=== PATIENT | female | born 1965 | race Caucasian/White ===

== ENCOUNTER → 2020-08-28 08:55 | Outpatient (BNVA) | payer MEDICARE, SELFPAY | PROVIDERS: Family Provider Family Medicine; PCP Family Medicine; Visit Provider Nurse Practitioner Family | DX: M25.551 Pain in right hip (principal); M16.11 Unilateral primary osteoarthritis, right hip | CPT/HCPCS: 73502 ==

== ENCOUNTER 2023-11-15 21:42 | Emergency (ER) | payer MEDICARE, SELFPAY ==
--- NOTE | 2023-11-15 21:43 | ECG_ITS ---
[facility] [place] [facility] Date: 2023-11-15 Pat Name: Sammi Peña Department: Room: Gender: Female Clinical Documentation Improvement Specialist: : [id number] Requested By: Tyron Spears Order Number: [id number] Radha MD: Jaime Willard M.D. Measurements Intervals [place] Rate: 64 P: 34 TN: 166 QRS: 60 QRSD: 92 T: 56 QT: 408 QTc: 423 Interpretive Statements SINUS RHYTHM No previous ECG available for comparison Electronically Signed On 11-16-2023 21:36:49 CDT by Jaime Willard M.D. [id number]
--- NOTE | 2023-11-15 21:43 | XRR_ITS ---
PROCEDURE INFORMATION: Exam: XR Chest Exam date and time: 11/15/2023 9:49 PM Age: 58 years old Clinical indication: Chest wall pain; Prior surgery; Surgery date: 6+ months; Surgery type: Cervical; Additional info: Cxp TECHNIQUE: Imaging protocol: Radiologic exam of the chest. Views: 1 view. COMPARISON: No relevant prior studies available. FINDINGS: Lungs: Platelike atelectasis involves both lung bases but I see no lung mass or infiltrate. Pleural spaces: Unremarkable. No pleural effusion. No pneumothorax. Heart/Mediastinum: Unremarkable. No cardiomegaly. Bones/joints: Unremarkable. XR/XR chest 1V portable [id number] IMPRESSION: No acute findings.
[2023-11-15 21:48] VITALS: BP 176/102; PULSE 66; RESP 14; O2SAT 97
--- NOTE | 2023-11-15 21:54 | ED_ITS ---
HPI - Chest Pain 2 General: Chief Complaint: Chest Pain Stated Complaint: CP, Light headed Time Seen by Provider: 11/15/23 21:51 Source: patient Mode of arrival: ambulatory Limitations: no limitations History of Present Illness: 58-year-old female states she been havin g a burning pain across her chest that is been going on for 2 days. States pain is currently a 2 out of 10 had some worsening with inspiration. She denies any cough or fever no history of heart disease she is a non-smoker. She states she has been under a lot of stress lately as well. Associated symptoms: Deny abdominal pain, dyspnea, fever(s), nausea or vomiting Review of Systems 2 Const: Denies: fever(s), chills, body aches or change in appetite ENMT: Denies: throat pain or dental pain Card: Reports: chest pain Resp: Denies: dyspnea GI: Denies: abdominal pain, nausea, vomiting or diarrhea Musc: Denies: neck pain or back pain Skin/Breast: Denies: rash Neuro: Denies: headache(s) PFSH ED 2 PFSH: Surgical History H/O spinal fusion Family History Other CAD (coronary artery disease) Cancer Social History Smoking and tobacco/nicotine status: never used tobacco/nicotine Alcohol intake: never Substance/Drug Use: never Physical Exam 2 Const: COMMON NORMALS: no acute distress, patient oriented x3 and healthy appearing HENMT: COMMON NORMALS: normocephalic and atraumatic HEAD & SCALP: n ormocephalic and atraumatic Neck/C-Spine: COMMON NORMALS: full ROM and supple Chest: COMMONS NORMALS: normal inspection of the chest Resp: COMMON NORMALS: normal respiratory effort, No retractions, No use of accessory muscles and clear to auscultation bilaterally AUSCULTATION: clear to auscultation bilaterally Cardio: COMMON NORMALS: regular rate, regular rhythm and No murmurs present (Cardio) RATE: regular rate RHYTHM: regular rhythm GI: COMMON NORMALS: Normal to inspection, nondistended, normoactive bowel sounds present, Soft to palpation, non-tender and no masses PALPATION: Yes Soft to palpation Extremity: COMMON NORMALS: normal to inspection and full ROM Neuro: COMMON NORMALS: patient oriented x3, moves all extremities and no focal motor deficits Psych: COMMON NORMALS: mental status grossly normal, Normal thought process present and cooperative THOUGHT PROCESS: Normal thought process present Skin: COMMON NORMALS: no rashes or lesions noted and no wounds GENERAL SKIN EXAM: no rashes or lesions noted Course 2 Vital Signs: Vital signs: Vital Signs Pulse Rate 75 11/15/23 22:16 Respiratory Rate 16 11/15/23 22:16 Blood Pressure 143/90 11/15/23 22:16 Pulse Oximetry 98 11/15/23 22:16 Oxygen Delivery Me thod Room Air 11/15/23 22:16 MDM - Chest Pain Medical Decision Making Patient presents here with chest pain atypical in nature it has been on for 2 days her troponin here is negative D-dimer is negative as well she stable for discharge her blood pressure here is improved she is to monitor her blood pressure at home she is to follow-up with her PCP in 2 to 4 days return if worsening she understands agrees to plan. She has no signs of pulmonary embolism or aortic dissection Medical Records I reviewed the patient's medical records. Lab Data I reviewed the patient's lab results. 11/15/23 21:57 11/15/23 21:57 Radiology Impressions Chest X-Ray 11/15/23 21:43 IMPRESSION: No acute findings. Laboratory Results WBC 7.37 10^3/uL (3.29-11.43) 11/15/23 21:57 RBC 4.96 10^6/uL (3.85-5.65) 11/15/23 21:57 Hgb 14.40 g/dL (11.27-16.99) 11/15/23 21:57 Hct 43.6 % (36-47) 11/15/23 21:57 MCV 87.9 fl (85-98) 11/15/23 21:57 MCH 29.0 pg (27-33) 11/15/23 21:57 MCHC 33.0 g/dL (30-55) 11/15/23 21:57 RDW 13.2 % (12.1-15.1) 11/15/23 21:57 Plt Count 230 10^3/cmm (157-399) 11/15/23 21:57 MPV 11.4 fL (7.4-10.4) H 11/15/23 21:57 Neut % (Auto) 53.7 % 11/15/23 21:57 Lymph % (Auto) 30.8 % 11/15/23 21:57 [place] % (Auto) 12.9 % 11/15/23 21:57 Eos % (Auto) 1.8 % 11/15/23 21:57 Baso % (Auto) 0.4 % 11/15/23 21:57 Neut # (Auto) 3.96 10^3/uL (1.8-7.7) 11/15/23 21:57 Lymph # (Auto) 2.3 10^3/uL (0.8-4.8) 11/15/23 21:57 Donley # (Auto) 1.0 10^3/uL (0.2-0.9) H 11/15/23 21:57 Eos # (Auto) 0.1 10^3/uL (0.0-0.8) 11/15/23 21:57 Baso # (Auto) 0.0 10^3/uL (0.0-0.1) 11/15/23 21:57 Nucleated RBC % (auto) 0 % 11/15/23 21:57 Nucleated RBCs # 0.0 /100WBC 11/15/23 21:57 PT 13.40 SECONDS (12.1-14.9) 11/15/23 21:57 INR 0.99 (0.8-1.2) 11/15/23 21:57 D-Dimer 0.59 ug/mLFEU (0-0.59) 11/15/23 21:57 Carbon Dioxide 26 mmol/L (22-29) 11/15/23 21:57 BUN 13 mg/dL (6-20) 11/15/23 21:57 Creatinine 0.7 mg/dL (0.5-0.9) 11/15/23 21:57 GFR Calculation 86.6 mL/min (90-130) L 11/15/23 21:57 Glucose 82 mg/dL (65-115) 11/15/23 21:57 Calcium 8.9 mg/dL (8.5-10.5) 11/15/23 21:57 Total Bilirubin 0.2 mg/dL (0.15-1.2) 11/15/23 21:57 AST 12 U/L (0-32) 11/15/23 21:57 ALT 14 U/L (0-33) 11/15/23 21:57 Alkaline Phosphatase 69 U/L (35-105) 11/15/23 21:57 Troponin T Baseline < 6 ng/L (0-10) 11/15/23 21:57 NT-Pro-B Natriuret Pep 43 pg/mL (0-125) 11/15/23 21:57 Total Protein 6.8 g/dL (6.6-8.7) 11/15/23 21:57 Albumin 4.6 g/dL (3.5-5.2) 11/15/23 21:57 Globulin 2.2 g/dL (1.3-4.6) 11/15/23 21:57 Lipase 54 U/L (13-60) 11/15/23 21:57 All radiology interpretation(s) finalized by discharge EKG Data EKG 1: I personally reviewed and interpreted this EKG as follows: EKG interpretation date: 11/15/23 EKG interpretation time: 21:48 Interpretation: nsr hr [address] or t wave abnormalities qrs 92 qtc 418 Discharge Plan Discharge Patient Disposition: Home Clinical Impression: Chest pain Qualifiers: Chest pain type: unspecified Qualified Code(s): R07.9 - Chest pain, unspecified Condition: Stable Prescriptions: No Action duloxetine [Cymbalta] 30 mg capsule,delayed release(DR/EC) 30 mg PO BID methylprednisolone [Medrol (Rod)] 4 mg tablets,dose pack See Rx Instructions PO PER PKG DIR Qty: 21 0RF Rx Instructions: PO PER PKG DIR Discharge Orders: Discharge ED (Routine); Ordered 11/15/23 Ordered By: Rakan Brito Referrals: Wily Diaz MD [Primary Care Provider] - 4-7 days Discharge Diet: Advance as tolerated Discharge Activity: Resume usual activity Patient Instructions: Chest Pain (ED) Coding Level of Care Code ED Molding Plasterer for Chg Brandi
[2023-11-15 22:02] LABS: Basophils % 0.4 %; Eosinophils # 0.1 10^3/uL (0.0-0.8); Eosinophils % 1.8 %; Hematocrit 43.6 % (36-47); Lymphocytes # 2.3 10^3/uL (0.8-4.8); Lymphocytes % 30.8 %; Mean Corpuscular Volume 87.9 fl (85-98); Mean Platelet Volume 11.4 fL (7.4-10.4); Monocytes % 12.9 %; Neutrophils # 3.96 10^3/uL (1.8-7.7); Neutrophils % 53.7 %; Nucleated Red Blood Cells % 0 %; Platelet Count 230 10^3/cmm (157-399); Red Blood Count 4.96 10^6/uL (3.85-5.65); Red Cell Distribution Width 13.2 % (12.1-15.1); White Blood Count 7.37 10^3/uL (3.29-11.43)
[2023-11-15] MEDS: lidocaine 2% viscous 15 ML, aluminum-mag hydrox-simethicon 30 ML, sucralfate oral liq 1 GM PO (22:02)
[2023-11-15] MEDS: aspirin 81 mg Chew Tablet PO (22:04)
[2023-11-15 22:15] LABS: INR 0.99 (0.8-1.2)
[2023-11-15 22:16] VITALS: BP 143/90; PULSE 75; RESP 16; O2SAT 98
[2023-11-15 22:17] LABS: D Dimer 0.59 ug/mLFEU (0-0.59)
[2023-11-15 22:23] LABS: Troponin(5th) Baseline < 6 ng/L (0-10)
[2023-11-15 22:31] LABS: Alanine Aminotransferase 14 U/L (0-33); Albumin Level 4.6 g/dL (3.5-5.2); Alkaline Phosphatase 69 U/L (35-105); Aspartate Amino Transferase 12 U/L (0-32); Blood Urea Nitrogen 13 mg/dL (6-20); Calcium 8.9 mg/dL (8.5-10.5); Carbon Dioxide 26 mmol/L (22-29); Creatinine Clr Calc Pharmacy 93.4858; Globulin 2.2 g/dL (1.3-4.6); Glomerular Filtration Rate 86.6 mL/min (90-130); Glucose 82 mg/dL (65-115); Lipase 54 U/L (13-60); NT Pro B Type Natriuretic Pept 43 pg/mL (0-125); Total Bilirubin 0.2 mg/dL (0.15-1.2); Total Protein 6.8 g/dL (6.6-8.7)
[2023-11-15 22:42] LABS: Add Urine Microscopic? YES; Bilirubin Urine Neg (Negative); Blood Urine Neg (Negative); Glucose Urine UA Norm (Normal); Ketones Urine 1+ (Negative); Leukocyte Esterase Urine 1+ (Negative); Nitrate Urine Negative (Negative); Protein Urine Neg (Negative); Urine Appearance Clear (CLEAR); Urine Color Yellow (Yellow); Urobilinogen Urine Neg (Negative); WBC Urine 0-4 /hpf (0-5); pH Urine 5 (5-7)
[2023-11-15 22:43] LABS: Add Urine Culture? No; Bacteria Urine TRACE /hpf; Mucus Urine 1+ /hpf; Squamous Epithelial Cell Urine 0-4 /hpf (0-5)
[2023-11-15 22:59] VITALS: BP 143/90; PULSE 75; RESP 16; O2SAT 98
[2023-11-15 23:15] LABS: Anion Gap 14.9 (5-19); Chloride 105 mmol/L (98-107); Osmolality Calculated 293 mOsm/kg (285-295); Potassium 3.9 mmol/L (3.5-5.1); Sodium 142 mmol/L (136-145)
== END 2023-11-15 23:00 | disposition home or self-care (01) ==
PROVIDERS: Internal Medicine; Emergency Provider Emergency Medicine; PCP Radiology Neuroradiology
DX: R07.9 Chest pain, unspecified (principal)
CPT/HCPCS: 71045; 80053; 81001; 83690; 83880; 84484; 85025; 85378; 85610; 93005; 99285

== ENCOUNTER 2024-05-21 06:38 | Day surgery (SDC) | payer MEDICARE, SELFPAY ==
[2024-05-21] VITALS (16 sets, daily range): BP systolic 96–124; BP diastolic 57–93; PULSE 62–81; RESP 13–23; TEMP 36.1–36.9; O2SAT 95–100; BMI 23.5
[2024-05-21 07:10] LABS: Basophils % 0.3 %; Eosinophils % 0.2 %; Hematocrit 43.6 % (36-47); Lymphocytes # 1.1 10^3/uL (0.8-4.8); Lymphocytes % 9.6 %; Mean Corpuscular HGB Conc 33.3 g/dL (30-55); Mean Corpuscular Hemoglobin 29.6 pg (27-33); Mean Platelet Volume 12.7 fL (7.4-10.4); Monocytes % 8.6 %; Neutrophils # 9.62 10^3/uL (1.8-7.7); Neutrophils % 80.9 %; Nucleated Red Blood Cells % 0 %; Platelet Count 163 10^3/cmm (157-399); Red Cell Distribution Width 12.7 % (12.1-15.1); White Blood Count 11.88 10^3/uL (3.29-11.43)
--- NOTE | 2024-05-21 07:15 | CTR_ITS ---
PROCEDURE INFORMATION: Exam: CT Abdomen And Pelvis With Contrast Exam date and time: 05/21/2024 7:37 AM Age: 59 years old Clinical indication: Abdominal pain; Localized; Right lower quadrant (rlq); Prior surgery; Surgery date: 6+ months; Surgery type: Hysto; Additional info: Rlq abdominal and flank pain TECHNIQUE: Imaging protocol: Computed tomography of the abdomen and pelvis with contrast. Radiation optimization: All CT scans at this facility use at least one of these dose optimization techniques: automated exposure control; mA and/or kV adjustment per patient size (includes targeted exams where dose is matched to clinical indication); or iterative reconstruction. Contrast material: OMNI 350; Contrast volume: 100 ml; Contrast route: INTRAVENOUS (IV); COMPARISON: CR XR hip RT 2-3V wo/w pel* [id number] 08/28/2020 9:01 AM RADIATION DOSE METRICS: Total DLP (mGy-cm): 475.8 FINDINGS: Lungs: There is subpleural atelectasis of the dependent portions of the lungs. Liver: Unremarkable.No mass. Gallbladder and biliary ducts: Normal. No calcified stones. No ductal dilation. Pancreas: Normal. No ductal dilation. Spleen: The spleen is normal. Adrenal glands: The adrenal glands are normal. Kidneys and ureters: There is no evidence of hydronephrosis. There are multiple renal hypodensities that cannot be further characterized on the current examination. There is punctate nephrolithiasis versus renal vascular calcifications. Stomach and bowel: There is no evidence of intestinal perforation or obstruction. There is no evidence of colitis/diverticulitis. Moderate diverticulosis is present in the distal colon. Appendix: The appendix demonstrates moderate diffuse distention with periappendiceal fat stranding consistent with moderate acute appendicitis. Intraperitoneal space: No abscess. No free air. No significant fluid collection. Vasculature: Unremarkable.No abdominal aortic aneurysm. Lymph nodes: Unremarkable.No enlarged lymph nodes. Urinary bladder: The bladder is normal. Reproductive: There has been a hysterectomy. Bones/joints: Unremarkable. No acute fracture. Soft tissues: There is a fat-containing umbilical hernia. CT/CT abdomen pelvis w con* [id number] IMPRESSION: Acute appendicitis. No abscess or free air. COMMENTS: Consistent with the [employer]'s Incidental Findings Committee white paper (J Am Stanley Radiol 2018): Any incidental renal lesion less than 1 cm or classified as too small to characterize, or any incidental cystic renal lesion characterized as simple-appearing, is likely benign. No follow-up imaging is recommended for these lesions per consensus recommendations based on imaging criteria.
--- NOTE | 2024-05-21 07:15 | ED_ITS ---
HPI - Abdominal Pain 2 General: Chief Complaint: Abdominal Pain Stated Complaint: abdominal pain, nausea Time Seen by Provider: 05/21/24 06:59 History of Present Illness: 59-year-old female who presents emergenc y room with right lower abdominal and flank pain has been present for about 3 days. She has had some nausea and dry heaving. No fevers. No diarrhea. She has had a hysterectomy but no other abdominal surgeries. No known fevers. No chest pain. No shortness of breath. No altered mental status. No focal motor deficits. No dysuria. Related Data Home Medications Medication Instructions Recorded Confirmed duloxetine 30 mg capsule,delayed 30 mg PO BID 08/28/20 08/28/20 release (Cymbalta) Previous Rx's Medication Instructions Recorded methylprednisolone 4 mg tablets in See Rx Instructions PO PER PKG DIR 08/28/20 a dose pack (Medrol (Rod)) #21 ea Allergies Allergy/AdvReac Type Severity Reaction Status Date / Time Sulfa (Sulfonamide Allergy unknown Verified 11/15/23 21:50 Antibiotics) Review of Systems 2 Narrative: Constitutional symptoms: Negative except as documented in HPI. Skin symptoms: Negative except as documented in HPI. Eye symptoms: Negative except as documented in HPI. ENMT symptoms: Negative except as documented in HPI. Respiratory symptoms: Negative except as documented in HPI. Cardiovascular symptoms: Negative except as documented in HPI. Gastrointestinal symptoms: Negative except as documented in HPI. Genitourinary symptoms: Negative except as documented in HPI. Musculoskeletal symptoms: Negative except as documented in HPI. Neurologic symptoms: Negative except as documented in HPI. Psychiatric symptoms: Negative except as documented in HPI. Endocrine symptoms: Negative except as documented in HPI. PFSH ED 2 PFSH: Surgical History H/O spinal fusion Family History Other CAD (coronary artery disease) Cancer Social History Smoking and tobacco/nicotine status: never used tobacco/nicotine Alcohol intake: never Substance/Drug Use: never Physical Exam 2 Narrative: EXAM NARRATIVE: General: Alert, no acute distress. Skin: Warm, dry. Head: Normocephalic, atraumatic. Neck: Supple, trachea midline. Eye: Extraocular movements are intact. Ears, nose, mouth and throat: Dry oral mucosa Cardiovascular: Regular, Normal peripheral perfusion. Respiratory: Lungs are clear to auscultation, respirations are non-labored, breath sounds are equal, Symmetrical chest wall expansion. Gastrointestinal: Soft, right lower quadrant and right flank pain, Non distended Musculoskeletal: Normal ROM, no deformity. Neurological: Alert and oriented, No focal neurological deficit observed. Psychiatric: Cooperative, appropriate mood & affect. Course 2 Vital Signs: Vital signs: Vital Signs Temperature 97.6 F 05/21/24 06:42 Pulse Rate 68 05/21/24 09:13 Respiratory Rate 18 05/21/24 09:13 Blood Pressure 109/75 05/21/24 09:13 Pulse Oximetry 96 05/21/24 09:13 Oxygen Delivery Me thod Room Air 05/21/24 07:28 MDM - Abdominal Pain Medical Decision Making Medical decision making: Differential diagnosis for this patient with right lower quadrant abdominal pain including but not limited to and based on the above HPI, review of systems and physical exam: Ureterolithiasis. Urinary tract infection. Appendicitis. colitis. small bowel obstruction. Crohn's flare. Pancreatitis. Cholelithiasis or cholecystitis. Hepatitis. Diverticulitis. Constipation. ovarian cyst. ovarian torsion no renal failure. BUN and creatinine are 14 and 0.7. Workup: Orders were placed to evaluate differential diagnosis based on the above differential, HPI and exam: Lab Review: Laboratory results were reviewed and interpreted by myself the emergency room physician. Leukocytosis with white count 11.9. No anemia. Hemoglobin is 14.5. Platelets 163. Liver enzymes are normal. CRP is quite elevated at 56. Patient also has a bit of a urinary tract infection with white count of 11-20 in her urine and 2+ bacteria CT of the abdomen pelvis with contrast: Patient has an acute appendicitis. This was reviewed and interpreted by myself the emergency room physician. I also reviewed the radiology report. I also discussed the findings with the radiologist on-call personally. I reviewed the patient's medical record Reexamination: Patient still with some right lower quadrant pain after pain meds. She is receiving fluids. Blood pressure is a little soft. She appears dehydrated. Consultation: I spoke with Dr. Orellana who is admitting the patient. He will take her to the OR likely today. Ordered Zosyn as requested. Assessment and plan: Acute appendicitis Dehydration Urinary tract infection ?I had given Rocephin initially for a UTI, however the patient was ultimately found to have appendicitis and at that point Zosyn was given. ? 2 L normal saline bolus given with concern for sepsis. ? Dilaudid and Zofran were given. -I discussed the patient with the hospitalist on-call who is admitting the patient. - Discussed findings and plan with patient. Answered any questions. - All laboratory values were reviewed and interpreted personally by myself, the ER physician - All imaging was reviewed and interpreted personally by myself, the ER physician. - Evaluation and treatment of this problem were appropriate in the emergency setting Lab Data 05/21/24 06:47 05/21/24 06:47 Labs/Radiology: Radiology Impressions Abdomen/Pelvis CT 05/21/24 07:15 IMPRESSION: Acute appendicitis. No abscess or free air. COMMENTS: Consistent with the [employer]'s Incidental Findings Committee white paper (J Am Stanley Radiol 2018): Any incidental renal lesion less than 1 cm or classified as too small to characterize, or any incidental cystic renal lesion characterized as simple-appearing, is likely benign. No follow-up imaging is recommended for these lesions per consensus recommendations based on imaging criteria. ADDENDUM: 05/21/24 0932 THIS REPORT CONTAINS FINDINGS THAT MAY BE CRITICAL TO PATIENT CARE. The findings were verbally communicated via telephone conference with REUBEN BELL at 9:31 AM CDT on 05/21/2024. The findings were acknowledged and understood. Laboratory Results WBC 11.88 10^3/uL (3.29-11.43) H 05/21/24 06:47 RBC 4.90 10^6/uL (3.85-5.65) 05/21/24 06:47 Hgb 14.50 g/dL (11.27-16.99) 05/21/24 06:47 Hct 43.6 % (36-47) 05/21/24 06:47 MCV 89.0 fl (85-98) 05/21/24 06:47 MCH 29.6 pg (27-33) 05/21/24 06:47 MCHC 33.3 g/dL (30-55) 05/21/24 06:47 RDW 12.7 % (12.1-15.1) 05/21/24 06:47 Plt Count 163 10^3/cmm (157-399) 05/21/24 06:47 MPV 12.7 fL (7.4-10.4) H 05/21/24 06:47 Neut % (Auto) 80.9 % 05/21/24 06:47 Lymph % (Auto) 9.6 % 05/21/24 06:47 [place] % (Auto) 8.6 % 05/21/24 06:47 Eos % (Auto) 0.2 % 05/21/24 06:47 Baso % (Auto) 0.3 % 05/21/24 06:47 Neut # (Auto) 9.62 10^3/uL (1.8-7.7) H 05/21/24 06:47 Lymph # (Auto) 1.1 10^3/uL (0.8-4.8) 05/21/24 06:47 Johnson # (Auto) 1.0 10^3/uL (0.2-0.9) H 05/21/24 06:47 Eos # (Auto) 0.0 10^3/uL (0.0-0.8) 05/21/24 06:47 Baso # (Auto) 0.0 10^3/uL (0.0-0.1) 05/21/24 06:47 Nucleated RBC % (auto) 0 % 05/21/24 06:47 Nucleated RBCs # 0.0 /100WBC 05/21/24 06:47 Sodium 136 mmol/L (136-145) 05/21/24 06:47 Potassium 3.6 mmol/L (3.5-5.1) 05/21/24 06:47 Chloride 102 mmol/L (98-107) 05/21/24 06:47 Carbon Dioxide 22 mmol/L (22-29) 05/21/24 06:47 Anion Gap 15.6 (5-19) 05/21/24 06:47 BUN 14 mg/dL (6-20) 05/21/24 06:47 Creatinine 0.7 mg/dL (0.5-0.9) 05/21/24 06:47 GFR Calculation 86.2 mL/min (90-130) L 05/21/24 06:47 Glucose 125 mg/dL (65-115) H 05/21/24 06:47 Calculated Osmolality 284 mOsm/kg (285-295) L 05/21/24 06:47 Lactic Acid 0.7 mmol/L (0.5-2.2) 05/21/24 07:01 Calcium 8.8 mg/dL (8.5-10.5) 05/21/24 06:47 Total Bilirubin 0.9 mg/dL (0.15-1.2) 05/21/24 06:47 AST 13 U/L (0-32) 05/21/24 06:47 ALT 7 U/L (0-33) 05/21/24 06:47 Alkaline Phosphatase 72 U/L (35-105) 05/21/24 06:47 C-Reactive Protein 56.1 mg/L (0.0-4.9) H 05/21/24 06:47 Total Protein 6.9 g/dL (6.6-8.7) 05/21/24 06:47 Albumin 4.3 g/dL (3.5-5.2) 05/21/24 06:47 Globulin 2.6 g/dL (1.3-4.6) 05/21/24 06:47 Urine Color [place] (Yellow) A 05/21/24 07:17 Urine Appearance Clear (CLEAR) 05/21/24 07:17 Urine pH 6.0 (5-7) 05/21/24 07:17 Ur Specific [place] 1.023 (1.005-1.030) 05/21/24 07:17 Urine Protein Trace (Negative) A 05/21/24 07:17 Urine Glucose (UA) Negative (Normal) 05/21/24 07:17 Urine Ketones 3+ (Negative) H 05/21/24 07:17 Urine Blood Negative (Negative) 05/21/24 07:17 Urine Nitrate Negative (Negative) 05/21/24 07:17 Urine Bilirubin Negative (Negative) 05/21/24 07:17 Urine Urobilinogen 1.0 mg/dL (Negative) 05/21/24 07:17 Ur Leukocyte Esterase 2+ (Negative) A 05/21/24 07:17 Urine RBC 0-2 /hpf (0-2) 05/21/24 07:17 Urine WBC 11-20 /hpf (0-5) H 05/21/24 07:17 Ur Squamous Epith Cells 0-5 /hpf (0-5) 05/21/24 07:17 Amorphous Sediment Trace /hpf 05/21/24 07:17 Urine Bacteria 2+ /hpf (NONE) H 05/21/24 07:17 Hyaline Casts 13.63 /lpf 05/21/24 07:17 All radiology interpretation(s) finalized by discharge Discharge Plan Discharge Patient Disposition: Admitted As Inpatient Clinical Impression: Acute appendicitis Condition: Stable 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
[2024-05-21 07:19] LABS: C Reactive Protein 56.1 mg/L (0.0-4.9); Chloride 102 mmol/L (98-107); Potassium 3.6 mmol/L (3.5-5.1); Sodium 136 mmol/L (136-145)
[2024-05-21] MEDS: HYDROmorphone 1 mg/mL INJ 1 mL IVP (07:25)
[2024-05-21] MEDS: ondansetron 2 mg/ML SDV 2 mL 8 MG IVP (07:25)
[2024-05-21 07:32] LABS: Alanine Aminotransferase 7 U/L (0-33); Albumin Level 4.3 g/dL (3.5-5.2); Alkaline Phosphatase 72 U/L (35-105); Anion Gap 15.6 (5-19); Aspartate Amino Transferase 13 U/L (0-32); Blood Urea Nitrogen 14 mg/dL (6-20); Calcium 8.8 mg/dL (8.5-10.5); Carbon Dioxide 22 mmol/L (22-29); Creatinine Clr Calc Pharmacy 89.8331; Globulin 2.6 g/dL (1.3-4.6); Glomerular Filtration Rate 86.2 mL/min (90-130); Glucose 125 mg/dL (65-115); Osmolality Calculated 284 mOsm/kg (285-295); Total Bilirubin 0.9 mg/dL (0.15-1.2); Total Protein 6.9 g/dL (6.6-8.7)
[2024-05-21 07:40] LABS: Lactic Sepsis W/Reflex 0.7 mmol/L (0.5-2.2)
[2024-05-21 07:55] LABS: Bilirubin Urine Negative (Negative); Blood Urine Negative (Negative); Glucose Urine UA Negative (Normal); Ketones Urine 3+ (Negative); Leukocyte Esterase Urine 2+ (Negative); Nitrate Urine Negative (Negative); Protein Urine Trace (Negative); Specific Gravity, Urine 1.023 (1.005-1.030); Urine Appearance Clear (CLEAR)
[2024-05-21 08:00] LABS: Hyaline Casts Urine 13.63 /lpf; RBC Urine 0-2 /hpf (0-2); Squamous Epithelial Cell Urine 0-5 /hpf (0-5)
[2024-05-21 08:02] LABS: Urine Color Orange (Yellow)
[2024-05-21 08:04] LABS: Add Urine Culture? Yes
[2024-05-21 08:17] LABS: Amorphous Sediment Urine TRACE /hpf; Bacteria Urine 2+ /hpf
[2024-05-21] MEDS: sodium chloride 0.9% 1,000 ML 999 ML IV ×2 (08:45)
[2024-05-21] MEDS: cefTRIAXone 1,000 mg SDV 1000 MG IVP (08:46)
[2024-05-21] MEDS: piperacillin-tazobactam 4.5 GM in sodium chloride 0.9% (plus) 50 ML IV (09:48)
--- NOTE | 2024-05-21 09:51 | P.HP_ITS ---
Providers/Chief Complaint 2 Primary Care Provider: Wily Diaz MD Chief Complaint: abdominal pain, nausea History of Present Illness Sammi Peña is a 59 year old female with who was brought into the hospital for abdominal pain over the last 3 days, patient states that she has been having pain for last 3 days that have been worsening in intensity starting the periumbilical region migrating to right lower quadrant, some chills but no fever. No nausea or vomit. CT scan of the ED show evidence of acute appendicitis and she has a white count of 11.8 Review of Systems 2 General: Reports: 10 or more systems reviewed and unremarkable except in HPI and below Medications/Allergies Home Medications Medication Instructions Recorded Confirmed Last Taken Type duloxetine 30 mg capsule,delayed 30 mg PO BID 08/28/20 08/28/20 Unknown History release (Cymbalta) methylprednisolone 4 mg tablets in See Rx Instructions PO PER PKG DIR 08/28/20 Unknown Rx a dose pack (Medrol (Rod)) #21 ea Allergies Allergy/AdvReac Type Severity Reaction Status Date / Time Sulfa (Sulfonamide Allergy unknown Verified 11/15/23 21:50 Antibiotics) PFSH Acute 2 PFSH: Surgical History H/O spinal fusion Family History Other CAD (coronary artery disease) Cancer Social History Smoking and tobacco/nicotine status: never used tobacco/nicotine Alcohol intake: never Substance/Drug Use: never Vitals/I&O/Wt Last Vital Signs Temp 97.6 F 05/21/24 06:42 Pulse 68 05/21/24 09:13 Resp 18 05/21/24 09:13 BP 109/75 05/21/24 09:13 Pulse Ox 96 05/21/24 09:13 O2 Del Method Room Air 05/21/24 07:28 05/20/24 05/21/24 05/21/24 22:59 06:59 14:59 Intake Total 1999 Balance 1999 Weight last 48 hrs Weight 150 lb Physical Exam 2 Narrative: General : Patient is well developed , no acute distress, oriented x3 Head : Normal cephalic, a-traumatic. Nose : Mucous membranes are without erythema. Lungs : Equal chest rise bilaterally, no use of accessory muscles, trachea is midline. CV : Rate and rhythm are normal. Abdomen : Soft, tenderness in the right lower quadrant, McBurney and Rovsing positive Extremities : No edema. Upper extremities are normal bilaterally. Back : non-tender to palpation, no CVA tenderness. Data 05/21/24 06:47 05/21/24 06:47 A&P Assessment and plan (1) Acute appendicitis: Plan This a 59-year-old female who presents with acute appendicitis verified by imaging. I discussed all recent benefits of laparoscopic possible open appendectomy including the risks of bleeding, infection, injury to surrounding structures including the small bowel colon or ureter, risk of abscess formation, risk of need additional surgical interventions, risk of hernia. After discussion of all risk and benefits patient agrees to proceed. Attestations 2 Medical Necessity Statement*: Possible discharge after surgery Coding Level of Care Code Acute Code for [facility] Diagnoses Acute appendicitis K35.80
--- NOTE | 2024-05-21 10:39 | ANES.PREANE2 ---
Pre-Anesthetic Assessment Height/Weight: Height 1.7 m Weight 68.039 kg Temp Pulse Resp BP Pulse Ox O2 Del Method 98.4 F 79 20 H 124/79 98 Room Air 05/21/24 09:55 05/21/24 09:55 05/21/24 09:55 05/21/24 09:55 05/21/24 09:55 05/21/24 09:55 Operation Date: 05/21/24 11:10 Proposed Procedures p Laparoscopic Appendectomy(Not Applicable) - Wily Sandoval MD Familial anesthetic complications: None Was Beta Yasemin taken within 24 hours: N/A Was Clonidine taken within 24 hours: N/A Last intake: > 8 hrs Semaglutide 6 days ago Social No alcohol and No tobacco Exam alert, oriented x 3, clear to auscultation bilaterally and regular rate & rhythm Airway Mallampati: Class I Dentition: chipped (molars, requires oral surgery) and other (bridge) Pulmonary Asthma Anesthetic Plan ASA status: 2 Anesthesia: General Risk of > 500 ml blood loss (7ml/kg in children): No Medications/Allergies Home Medications Medication Instructions Recorded Confirmed Last Taken Type duloxetine 30 mg capsule,delayed 30 mg PO BID 08/28/20 08/28/20 Unknown History release (Cymbalta) methylprednisolone 4 mg tablets in See Rx Instructions PO PER PKG DIR 08/28/20 Unknown Rx a dose pack (Medrol (Rod)) #21 ea Allergies Allergy/AdvReac Type Severity Reaction Status Date / Time Sulfa (Sulfonamide Allergy unknown Verified 11/15/23 21:50 Antibiotics) [facility], LAT[facility] Anesthesia Surgical History H/O spinal fusion Family History Other CAD (coronary artery disease) Cancer Social History Smoking and tobacco/nicotine status: never used tobacco/nicotine Alcohol intake: never Substance/Drug Use: never Data Anesthesia 05/21/24 06:47 05/21/24 06:47 Short CBC 05/21/24 Range/Units 06:47 WBC 11.88 H (3.29-11.43) 10^3/uL Hgb 14.50 (11.27-16.99) g/dL Hct 43.6 (36-47) % MCV 89.0 (85-98) fl Plt Count 163 (157-399) 10^3/cmm Neut % (Auto) 80.9 % Neut # (Auto) 9.62 H (1.8-7.7) 10^3/uL BMP 05/21/24 06:47 Sodium 136 Potassium 3.6 Chloride 102 Carbon Dioxide 22 BUN 14 Creatinine 0.7 Glucose 125 H Calcium 8.8 Liver Function 05/21/24 Range/Units 06:47 Total Bilirubin 0.9 (0.15-1.2) mg/dL AST 13 (0-32) U/L ALT 7 (0-33) U/L Alkaline Phosphatase 72 (35-105) U/L Albumin 4.3 (3.5-5.2) g/dL Urine 05/21/24 Range/Units 07:17 Urine Color [place] A (Yellow) Urine Appearance Clear (CLEAR) Urine pH 6.0 (5-7) Ur Specific [place] 1.023 (1.005-1.030) Urine Protein Trace A (Negative) Urine Glucose (UA) Negative (Normal) Urine Ketones 3+ H (Negative) Urine Nitrate Negative (Negative) Urine Bilirubin Negative (Negative) Ur Leukocyte Esterase 2+ A (Negative) Urine RBC 0-2 (0-2) /hpf Urine WBC 11-20 H (0-5) /hpf Coags 05/21/24 06:47 C-Reactive Protein 56.1 H Cardiac Studies: No Data to Display
[2024-05-21] MEDS: BUPivacaine 0.25% INJ 30 mL INJECTION (11:12)
[2024-05-21] MEDS: lidocaine-epi 1% PF 1:200,000 30 mL SDV INJECTION (11:12)
--- NOTE | 2024-05-21 11:53 | PM.OP ---
Operative Report Date of procedure: May 21, 2024 Pre-op diagnosis: Acute appendicitis Post-op diagnosis: Acute appendicitis Post-op findings: there was a distended and inflamed appendix located in the right paracolic gutter, no overt perforation but there was supervision from the tip of the appendix. There was a local inflammatory reaction in the right lower quadrant from the inflamed appendix. There were some omental adhesions to the lower pelvis that were taken down. Procedure done: Laparoscopic appendectomy Specimens removed/disposition: Appendix Surgeon: Wily Sandoval MD Biology Adjunct Instructor: ALEXANDER OR STaff Estimated blood loss: 5 Complications: none Brief History: 59-year-old female with acute appendicitis verified by imaging after discussion of all risk and benefits we decided to proceed with laparoscopic possible open appendectomy. Procedure: Patient was brought into the OR, she was placed in a supine position. General anesthesia was given. The abdomen was prepped and draped in the usual sterile fashion. Timeout was conducted. The abdomen was accessed via 5 mm Optiview trocar at Wellington's point, initial pneumoperitoneum was achieved and no evidence of visceral injury during entry was noted. A 12 mm trocar was placed in the infraumbilical position under direct visualization and a 5 mm trocar was placed in the suprapubic position under direct visualization. Omentum was tethered down to the pelvis, in order to retract her cephalad to the small additions of the omentum to the pelvic wall were taken down bluntly. I then was able to identify the base of the appendix in the right lower quadrant the base the patient is healthy and following the base hide noted the appendix call up on the right paracolic gutter, there was local inflammatory reaction with an initial phlegmon formation between the appendix and ascending colon. I was able to bluntly dissect the appendix and liberated from this phlegmonous formation. The tip of the appendix was noticed to have a small amount of separation but no overt perforation noted. I was able to take down the mesoappendix with LigaSure all the way to the base, the base appeared healthy and I therefore transected the appendix with a 45 mm blue load Endo HOLLY stapler at this level. The appendix was retrieved in an Endo Catch bag to be at umbilical trocar site. The staple line appeared healthy and hemostatic. Due to local inflammatory reaction and a small amount of separation I decided to proceed with irrigation of the appendiceal bed periappendiceal area, I irrigated the area with about a liter of saline and aspirated all the fluid out. Final laparoscopy showed no evidence of additional pathology in the abdomen. The medical trocar site was closed using #0 Vicryl in a Juvenal-Bj suture passer under direct visualization. Suprapubic trocar was removed under direct visualization and the left upper quadrant trocar was used to evacuate the pneumoperitoneum and subsequently removed. The wounds were closed in layers using #3-0 Vicryl for subcutaneous tissue #4 Monocryl for the skin. Dermabond was applied. at the end of the procedure all counts were correct, the patient tolerated well the procedure was transferred to the PACU in stable condition.
--- NOTE | 2024-05-21 11:58 | P.DS_ITS ---
Discharge Providers Date of Discharge: May 21, 2024 Attending Provider at Discharge: Wily Sandoval MD Primary Care Provider: Wily Diaz MD Diagnoses at Discharge Discharge Diagnosis (1) Acute appendicitis: Details from hospital stay: 59-year-old female who presented to the hospital with acute appendicitis, laparoscopic appendectomy was done without complication, patient will be discharged home and will follow-up in 2 weeks in the clinic. Status: Acute Reason for Visit Reason for Visit: abdominal pain, nausea Physical Exam GI: OTHER: Abdomen soft, appropriately tender, surgical incisions covered with Dermabond. Discharge Data Studies Completed and Pending Completed Studies During Hospitalization Category Date Time Status CT abdomen pelvis w con* [id number] Stat Cat Scan 05/21/24 07:15 Completed Pending at discharge Category Date Time Status Urine Culture Stat Lab 05/21/24 07:17 Received Pathology: Surgical [PTH] Routine Pth 05/21/24 11:38 Ordered Radiology Impressions Abdomen/Pelvis CT 05/21/24 07:15 IMPRESSION: Acute appendicitis. No abscess or free air. COMMENTS: Consistent with the [employer]'s Incidental Findings Committee white paper (J Am Stanley Radiol 2018): Any incidental renal lesion less than 1 cm or classified as too small to characterize, or any incidental cystic renal lesion characterized as simple-appearing, is likely benign. No follow-up imaging is recommended for these lesions per consensus recommendations based on imaging criteria. ADDENDUM: 05/21/24 0932 THIS REPORT CONTAINS FINDINGS THAT MAY BE CRITICAL TO PATIENT CARE. The findings were verbally communicated via telephone conference with REUBEN BELL at 9:31 AM CDT on 05/21/2024. The findings were acknowledged and understood. Laboratory Results WBC 11.88 10^3/uL (3.29-11.43) H 05/21/24 06:47 RBC 4.90 10^6/uL (3.85-5.65) 05/21/24 06:47 Hgb 14.50 g/dL (11.27-16.99) 05/21/24 06:47 Hct 43.6 % (36-47) 05/21/24 06:47 MCV 89.0 fl (85-98) 05/21/24 06:47 MCH 29.6 pg (27-33) 05/21/24 06:47 MCHC 33.3 g/dL (30-55) 05/21/24 06:47 RDW 12.7 % (12.1-15.1) 05/21/24 06:47 Plt Count 163 10^3/cmm (157-399) 05/21/24 06:47 MPV 12.7 fL (7.4-10.4) H 05/21/24 06:47 Neut % (Auto) 80.9 % 05/21/24 06:47 Lymph % (Auto) 9.6 % 05/21/24 06:47 [place] % (Auto) 8.6 % 05/21/24 06:47 Eos % (Auto) 0.2 % 05/21/24 06:47 Baso % (Auto) 0.3 % 05/21/24 06:47 Neut # (Auto) 9.62 10^3/uL (1.8-7.7) H 05/21/24 06:47 Lymph # (Auto) 1.1 10^3/uL (0.8-4.8) 05/21/24 06:47 [place] # (Auto) 1.0 10^3/uL (0.2-0.9) H 05/21/24 06:47 Eos # (Auto) 0.0 10^3/uL (0.0-0.8) 05/21/24 06:47 Baso # (Auto) 0.0 10^3/uL (0.0-0.1) 05/21/24 06:47 Nucleated RBC % (auto) 0 % 05/21/24 06:47 Nucleated RBCs # 0.0 /100WBC 05/21/24 06:47 Sodium 136 mmol/L (136-145) 05/21/24 06:47 Potassium 3.6 mmol/L (3.5-5.1) 05/21/24 06:47 Chloride 102 mmol/L (98-107) 05/21/24 06:47 Carbon Dioxide 22 mmol/L (22-29) 05/21/24 06:47 Anion Gap 15.6 (5-19) 05/21/24 06:47 BUN 14 mg/dL (6-20) 05/21/24 06:47 Creatinine 0.7 mg/dL (0.5-0.9) 05/21/24 06:47 GFR Calculation 86.2 mL/min (90-130) L 05/21/24 06:47 Glucose 125 mg/dL (65-115) H 05/21/24 06:47 Calculated Osmolality 284 mOsm/kg (285-295) L 05/21/24 06:47 Lactic Acid 0.7 mmol/L (0.5-2.2) 05/21/24 07:01 Calcium 8.8 mg/dL (8.5-10.5) 05/21/24 06:47 Total Bilirubin 0.9 mg/dL (0.15-1.2) 05/21/24 06:47 AST 13 U/L (0-32) 05/21/24 06:47 ALT 7 U/L (0-33) 05/21/24 06:47 Alkaline Phosphatase 72 U/L (35-105) 05/21/24 06:47 C-Reactive Protein 56.1 mg/L (0.0-4.9) H 05/21/24 06:47 Total Protein 6.9 g/dL (6.6-8.7) 05/21/24 06:47 Albumin 4.3 g/dL (3.5-5.2) 05/21/24 06:47 Globulin 2.6 g/dL (1.3-4.6) 05/21/24 06:47 Urine Color [place] (Yellow) A 05/21/24 07:17 Urine Appearance Clear (CLEAR) 05/21/24 07:17 Urine pH 6.0 (5-7) 05/21/24 07:17 Ur Specific [place] 1.023 (1.005-1.030) 05/21/24 07:17 Urine Protein Trace (Negative) A 05/21/24 07:17 Urine Glucose (UA) Negative (Normal) 05/21/24 07:17 Urine Ketones 3+ (Negative) H 05/21/24 07:17 Urine Blood Negative (Negative) 05/21/24 07:17 Urine Nitrate Negative (Negative) 05/21/24 07:17 Urine Bilirubin Negative (Negative) 05/21/24 07:17 Urine Urobilinogen 1.0 mg/dL (Negative) 05/21/24 07:17 Ur Leukocyte Esterase 2+ (Negative) A 05/21/24 07:17 Urine RBC 0-2 /hpf (0-2) 05/21/24 07:17 Urine WBC 11-20 /hpf (0-5) H 05/21/24 07:17 Ur Squamous Epith Cells 0-5 /hpf (0-5) 05/21/24 07:17 Amorphous Sediment Trace /hpf 05/21/24 07:17 Urine Bacteria 2+ /hpf (NONE) H 05/21/24 07:17 Hyaline Casts 13.63 /lpf 05/21/24 07:17 Vitals Last Vital Signs Temp 98.4 F 05/21/24 09:55 Pulse 79 05/21/24 09:55 Resp 20 H 05/21/24 09:55 BP 124/79 05/21/24 09:55 Pulse Ox 98 05/21/24 09:55 O2 Del Method Room Air 05/21/24 09:55 Discharge Plan Discharge Patient Disposition: Home Condition: Stable Prescriptions: No Action duloxetine [Cymbalta] 30 mg capsule,delayed release(DR/EC) 30 mg PO BID methylprednisolone [Medrol (Rod)] 4 mg tablets,dose pack See Rx Instructions PO PER PKG DIR Qty: 21 0RF Rx Instructions: PO PER PKG DIR Referrals: Wily Diaz MD [Primary Care Provider] - Discharge Diet: Advance as tolerated Discharge Activity: Limit activity as instructed Patient Instructions: Opioid Safety, Pain Management Activity Restrictions/Additional Instructions: No heavy lifting during the next 6 weeks, no more than 15 pounds. Walk is much as possible this will speed up the recovery. You can shower starting the day after tomorrow. Let soap and water run over your wounds and then pat dry. Return to the hospital you have fever severe abdominal pain that is getting worse or purulence from your wounds. Please take your medication as prescribed, even if you are feeling fine you need to finish the antibiotics. If you take oxycodone please take the MiraLAX otherwise he will get constipated. Discharge Attestations Time Spent in Discharge Care*: less than 30 min Quality Metrics Clinical Quality Measures [ No reported AMI, CVA or VTE this stay] Coding Level of Care Code Acute Code for [facility] Diagnoses Acute appendicitis K35.80
== END 2024-05-21 12:58 | disposition home or self-care (01) ==
LOC: ER 09:37 → OR 09:42
PROVIDERS: Emergency Provider Emergency Medicine; PCP Radiology Neuroradiology; Visit Provider Surgery
PROC: 0DTJ4ZZ Resection of Appendix, Percutaneous Endoscopic Approach (ICD-10-PCS; CPT 44970; principal; 2024-05-21 11:00)
DX: K35.33 Acute appendicitis with perforation, localized peritonitis, and gangrene, with abscess (principal); J44.9 Chronic obstructive pulmonary disease, unspecified; Z98.1 Arthrodesis status; N39.0 Urinary tract infection, site not specified
CPT/HCPCS: 74177; 80053; 81001; 83605; 85025; 86140; 87086; 88304; J0696; J1100; J1170; J1885; J2250; J2405; J2543; J2704; J2710; J3010; J3490; J7030; Q9967

== ENCOUNTER 2024-05-26 09:22 | Emergency (ER) | payer MEDICARE, SELFPAY ==
[2024-05-26 09:36] VITALS: BP 129/96; PULSE 74; RESP 14; TEMP 36.6; O2SAT 97; BMI 25.0
--- NOTE | 2024-05-26 09:46 | ED_ITS ---
HPI - Back Pain/Injury 2 General: Chief Complaint: Back Pain/Injury Stated Complaint: pain in lower back and legs, nausea Time Seen by Provider: 05/26/24 09:22 Source: patient Mode of arrival: ambulatory Limitations: no limitations History of Present Illness: Patient is a nice 59-year-old female presents to ED today with a complaint of back pain. She states she underwent an appendectomy approximately [address] Sandoval (DOS 05/21). She states approximately 3 days later she began developing lower back pain. She feels like back pain radiates down into her bilateral lower extremities. She does still complain of some abdominal pain. She feels nauseous. She was reportedly told she had a UTI in the hospital and started on antibiotics for this. Her urine culture was reviewed on today's visit and just showing mixed urogenital jasmin. Patient is not having any flank pain. Patient states she has had some mild discomforts in her back previously but nothing that has felt like today. She is not having any saddle anesthesia or bowel/bladder incontinence/retention. MD elicited complaint: back pain Onset (ago): day(s) Timing: constant Severity: severe Pain scale (0-10): 10 Similar Symptoms Previously: No Location: lumbar spine Radiation: buttocks, left upper leg and right upper leg Exacerbating factors: movement, sitting upright and walking Relieving factors: none Context: other (recent surgery) Associated symptoms: Reports abdominal pain and nausea; Deny chills, change in bowel habits, dysuria, fatigue, fever(s) or vomiting Work related injury: No Related Data Home Medications Medication Instructions Recorded Confirmed duloxetine 30 mg capsule,delayed 30 mg PO BID 08/28/20 05/26/24 release (Cymbalta) oxycodone 5 mg tablet 5 mg PO Q8H PRN Pain 05/26/24 05/26/24 Previous Rx's Medication Instructions Recorded amoxicillin 875 mg-potassium 1 tab PO BID 7 days #14 tabs 05/21/24 clavulanate 125 mg tablet meloxicam 7.5 mg tablet 7.5 mg PO DAILY 7 days #7 tabs 05/21/24 polyethylene glycol 3350 17 gram 17 g PO DAILY 7 days #7 ea 05/21/24 oral powder packet (Miralax) methocarbamol 500 mg tablet 1,000 mg (2 x 500 mg) PO Q8H #30 05/26/24 tabs methylprednisolone 4 mg tablets in See Rx Instructions PO .COMPLEX 05/26/24 a dose pack (Medrol (Rod)) #21 ea ondansetron 4 mg disintegrating 4 mg PO Q8H PRN nausea and 05/26/24 tablet vomiting #14 tabs Allergies Allergy/AdvReac Type Severity Reaction Status Date / Time Sulfa (Sulfonamide Allergy unknown Verified 05/26/24 09:46 Antibiotics) Review of Systems 2 Const: Denies: fever(s), chills, body aches, fatigue or malaise Card: Denies: chest pain Resp: Denies: dyspnea GI: Reports: abdominal pain and nausea; Denies: vomiting, diarrhea or change in bowel habits : Reports: urinary frequency; Denies: flank pain, difficulty voiding, dysuria, urinary hesitancy, dribbling or pelvic pain Musc: Reports: back pain; Denies: neck pain, extremity pain, extremity swelling, joint pain or joint swelling Skin/Breast: Denies: rash Neuro: Denies: headache(s), numbness in extremities, weakness in extremities, sensory changes or dizziness PFSH ED 2 PFSH: Surgical History H/O spinal fusion Family History Other CAD (coronary artery disease) Cancer Social History Smoking and tobacco/nicotine status: never used tobacco/nicotine Alcohol intake: never Substance/Drug Use: never Physical Exam 2 Const: COMMON NORMALS: average body habitus, patient oriented x3, no limitations, healthy appearing, alert and well nourished GENERAL APPEARANCE: cooperative and in distress (appears uncomfortable secondary to pain) O RIENTATION/CONSCIOUSNESS: Yes awake, Yes oriented to person, Yes oriented to place and Yes oriented to time Eye: COMMON NORMALS: no scleral icterus Neck/C-Spine: COMMON NORMALS: full ROM GENERAL: Yes normal visual inspection CERVICAL SPINE: No Cervical spine tenderness Chest: COMMONS NORMALS: normal inspection of the chest and normal palpation of entire chest wall Resp: COMMON NORMALS: normal respiratory effort and clear to auscultation bilaterally AUSCULTATION: clear to auscultation bilaterally Cardio: COMMON NORMALS: regular rate and regular rhythm RATE: regular rate RHYTHM: regular rhythm GI: INSPECTION: Yes other (surgical incisions appear well healing) A USCULTATION: Yes normoactive bowel sounds PALPATION: Yes Tenderness to palpation present (GI) (diffusely-max tenderness to RLQ), No Guarding due to palpation present (GI) and No Rigid due to palpation : COMMON NORMALS: Yes no CVA tenderness BLADDER/KIDNEY EXAM: Yes no CVA tenderness Back/Pelvis: COMMON NORMALS: no CVA tenderness THORACIC SPINE/UPPER BACK: N o thoracic spinal tenderness LUMBAR SPINE/LOWER BACK: Yes lumbar spinal tenderness, Yes paraspinal muscle tenderness, No paraspinal muscle spasm and No mass present PELVIS: Yes buttocks normal and No sciatic notch tenderness S ACROILIAC JOINTS: Yes SI joints normal SACRUM: no tenderness COCCYX: no tenderness Extremity: COMMON NORMALS: normal to inspection, full ROM, capillary refill normal, no joint enlargement, no clubbing, cyanosis or edema, no calf tenderness and no pedal edema GENERAL: Yes normal exam except as noted Neuro: COMMON NORMALS: patient oriented x3, moves all extremities, no focal motor deficits and no sensory deficits noted SENSORIUM/ORIENTATION: Yes alert, Yes oriented to person, Yes oriented to place and Yes oriented to time Skin: COMMON NORMALS: no rashes or lesions noted GENERAL SKIN EXAM: no rashes or lesions noted Course 2 Vital Signs: Vital signs: Vital Signs Temperature 97.8 F 05/26/24 09:36 Pulse Rate 74 05/26/24 09:36 Respiratory Rate 14 05/26/24 09:36 Blood Pressure 129/96 05/26/24 10:17 Pulse Oximetry 98 05/26/24 10:17 Oxygen Delivery Me thod Room Air 05/26/24 10:17 MDM - Back Pain/Injury Medical Decision Making Patient has no acute neurologic symptoms. Vital signs are stable. Blood work is unremarkable. Her UA overall appearing benign. Urine culture performed in the hospital was unremarkable. No evidence of postsurgical complication on CT scan. Constipation/postoperative mild ileus. Spoke to Dr. Dunham directly regarding her back who stated there were no significant findings on CT scan. 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 She ambulated here without assistance. Will allow discharge from ED with recommendations for PCP follow up. Return precautions given. Differential Diagnosis Likely lumbar radiculopathy, sciatica and strain of lumbar region Medical Records I reviewed the patient's medical records. Labs I reviewed the patient's lab results. 05/26/24 10:20 05/26/24 10:20 Radiology Impressions Abdomen/Pelvis CT 05/26/24 09:46 IMPRESSION: 1. Recent postoperative changes appendectomy. No evidence of abscess or drainable fluid collection. 2. Slight fluid dilatation of distal small bowel loops with some fecalization likely due to postoperative mild adynamic ileus. 3. Mild pancolonic constipation. 4. Sigmoid diverticulosis. 5. Prior hysterectomy. 6. Subsegmental atelectasis in the lung bases. Laboratory Results WBC 5.70 10^3/uL (3.29-11.43) 05/26/24 10:20 RBC 5.20 10^6/uL (3.85-5.65) 05/26/24 10:20 Hgb 15.20 g/dL (11.27-16.99) 05/26/24 10:20 Hct 44.9 % (36-47) 05/26/24 10:20 MCV 86.3 fl (85-98) 05/26/24 10:20 MCH 29.2 pg (27-33) 05/26/24 10:20 MCHC 33.9 g/dL (30-55) 05/26/24 10:20 RDW 12.5 % (12.1-15.1) 05/26/24 10:20 Plt Count 259 10^3/cmm (157-399) 05/26/24 10:20 MPV 12.0 fL (7.4-10.4) H 05/26/24 10:20 Neut % (Auto) 48.5 % 05/26/24 10:20 Lymph % (Auto) 34.6 % 05/26/24 10:20 [place] % (Auto) 13.7 % 05/26/24 10:20 Eos % (Auto) 2.3 % 05/26/24 10:20 Baso % (Auto) 0.5 % 05/26/24 10:20 Neut # (Auto) 2.77 10^3/uL (1.8-7.7) 05/26/24 10:20 Lymph # (Auto) 2.0 10^3/uL (0.8-4.8) 05/26/24 10:20 [place] # (Auto) 0.8 10^3/uL (0.2-0.9) 05/26/24 10:20 Eos # (Auto) 0.1 10^3/uL (0.0-0.8) 05/26/24 10:20 Baso # (Auto) 0.0 10^3/uL (0.0-0.1) 05/26/24 10:20 Nucleated RBC % (auto) 0 % 05/26/24 10:20 Nucleated RBCs # 0.0 /100WBC 05/26/24 10:20 Sodium 137 mmol/L (136-145) 05/26/24 10:20 Potassium 4.1 mmol/L (3.5-5.1) 05/26/24 10:20 Chloride 102 mmol/L (98-107) 05/26/24 10:20 Carbon Dioxide 24 mmol/L (22-29) 05/26/24 10:20 Anion Gap 15.1 (5-19) 05/26/24 10:20 BUN 14 mg/dL (6-20) 05/26/24 10:20 Creatinine 0.6 mg/dL (0.5-0.9) 05/26/24 10:20 GFR Calculation 103.0 mL/min (90-130) 05/26/24 10:20 Glucose 92 mg/dL (65-115) 05/26/24 10:20 Calculated Osmolality 284 mOsm/kg (285-295) L 05/26/24 10:20 Calcium 9.0 mg/dL (8.5-10.5) 05/26/24 10:20 Total Bilirubin 0.5 mg/dL (0.15-1.2) 05/26/24 10:20 AST 22 U/L (0-32) 05/26/24 10:20 ALT 19 U/L (0-33) 05/26/24 10:20 Alkaline Phosphatase 73 U/L (35-105) 05/26/24 10:20 Total Protein 7.4 g/dL (6.6-8.7) 05/26/24 10:20 Albumin 4.3 g/dL (3.5-5.2) 05/26/24 10:20 Globulin 3.1 g/dL (1.3-4.6) 05/26/24 10:20 Urine Color [place] (Yellow) A 05/26/24 09:54 Urine Appearance Clear (CLEAR) 05/26/24 09:54 Urine pH 6.0 (5-7) 05/26/24 09:54 Ur Specific [place] 1.012 (1.005-1.030) 05/26/24 09:54 Urine Protein Negative (Negative) 05/26/24 09:54 Urine Glucose (UA) Negative (Normal) 05/26/24 09:54 Urine Ketones 1+ (Negative) H 05/26/24 09:54 Urine Blood Negative (Negative) 05/26/24 09:54 Urine Nitrate Negative (Negative) 05/26/24 09:54 Urine Bilirubin Negative (Negative) 05/26/24 09:54 Urine Urobilinogen 1.0 mg/dL (Negative) 05/26/24 09:54 Ur Leukocyte Esterase Trace (Negative) A 05/26/24 09:54 Urine RBC 0-2 /hpf (0-2) 05/26/24 09:54 Urine WBC 0-5 /hpf (0-5) 05/26/24 09:54 Ur Squamous Epith Cells 0-5 /hpf (0-5) 05/26/24 09:54 Urine Bacteria None seen /hpf (NONE) 05/26/24 09:54 Hyaline Casts 0.40 /lpf 05/26/24 09:54 All radiology interpretation(s) finalized by discharge Discharge Plan Discharge Patient Disposition: Home Clinical Impression: Low back pain Qualifiers: Chronicity: acute Back pain laterality: midline Sciatica presence: unspecified whether sciatica present Qualified Code(s): M54.50 - Low back pain, unspecified Condition: Stable Prescriptions: New methocarbamol 500 mg tablet 1,000 mg PO Q8H Qty: 30 0RF methylprednisolone [Medrol (Rod)] 4 mg tablets,dose pack See Rx Instructions .ROUTE .COMPLEX Qty: 21 0RF Rx Instructions: orally per package directions ondansetron 4 mg tablet,disintegrating 4 mg PO Q8H PRN (Reason: nausea and vomiting) Qty: 14 0RF No Action duloxetine [Cymbalta] 30 mg capsule,delayed release(DR/EC) 30 mg PO BID oxycodone 5 mg tablet 5 mg PO Q8H PRN (Reason: Pain) meloxicam 7.5 mg tablet 7.5 mg PO DAILY 7 Days Qty: 7 0RF amoxicillin-pot clavulanate 875-125 mg tablet 1 tab PO BID 7 Days Qty: 14 0RF polyethylene glycol 3350 [Miralax] 17 gram powder in packet 17 g PO DAILY 7 Days Qty: 7 0RF Discharge Orders: Discharge ED (Routine); Ordered 05/26/24 Ordered By: Kimberly Morin Referrals: Wily Diaz MD [Primary Care Provider] - Patient Instructions: Acute Low Back Pain (ED), Lumbar Radiculopathy (ED) Activity Restrictions/Additional Instructions: As we discussed, you may continue taking your oxycodone as well as your meloxicam to help with back discomfort. Will place you on steroids and muscle relaxers. Your emergency department workup did not reveal any emergent etiology for your back discomfort. I would like you to follow-up with your primary care provider next week for reevaluation. Your CT imaging did show quite a bit of constipation and slowing of your bowel which is common following surgery. I would like you to start taking a capful of MiraLAX twice daily and use stool softeners. Start with a liquid/soft food diet and advance as tolerated. You may return to the emergency department for worsening abdominal or back pain, severe flank pain, fevers, repetitive episodes of vomiting, inability to have a bowel movement or pass stool, or any other concerns you may have. 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
--- NOTE | 2024-05-26 09:46 | CT_ITS ---
WS: [id number] CT ABDOMEN PELVIS TECHNIQUE: Contrast-enhanced CT of the abdomen and pelvis with coronal and sagittal reformatted image s. CLINICAL INFORMATION: back pain following appendectomy; ab pain COMPARISON: 05/21/2024 DLP: 520.[address] scans at [facility] use at least one of these dose optimization techniques: automated e xposure control; mA and/or kV adjustment per patient size (includes targeted exams where dose is matc hed to clinical indication); or iterative reconstruction. FINDINGS: Recent appendectomy. Normal postoperative changes in the RIGHT lower quadrant. No evidence of drainab le fluid collection or abscess. Minimal residual postoperative induration. Surgical clips. Prior hysterectomy. Slight subsegmental atelectasis in the lung bases. Normal liver. Normal portal ve in and splenic vein. Normal spleen. Small esophageal hernia. Normal gallbladder. Normal caliber abdom inal aorta. Adrenal glands are normal. No hydronephrosis in either kidney. Small bilateral renal cyst s. Sigmoid diverticulosis. No evidence of acute diverticulitis. Mild fluid dilatation and fecalization o f the distal small bowel likely due to postoperative ileus. CT/CT abdomen pelvis w con* [id number] IMPRESSION: 1. Recent postoperative changes appendectomy. No evidence of abscess or draina ble fluid collection. 2. Slight fluid dilatation of distal small bowel loops with some fecalization likely due to postoperative mild adynamic ileus. 3. Mild pancolonic constipation. 4. Sigmoid diverticulosis. 5. Prior hysterectomy. 6. Subsegmental atelectasis in the lung bases.
[2024-05-26 10:17] VITALS: BP 129/96; O2SAT 98
[2024-05-26] MEDS: morphine 4 mg/mL SDV 1 mL IVP (10:17)
[2024-05-26] MEDS: ondansetron 2 mg/ML SDV 2 mL 4 MG IVP (10:17)
[2024-05-26 10:20] LABS: Bilirubin Urine Negative (Negative); Blood Urine Negative (Negative); Glucose Urine UA Negative (Normal); Ketones Urine 1+ (Negative); Leukocyte Esterase Urine Trace (Negative); Nitrate Urine Negative (Negative); Protein Urine Negative (Negative); Specific Gravity, Urine 1.012 (1.005-1.030); Urine Appearance Clear (CLEAR)
[2024-05-26 10:24] LABS: Add Urine Microscopic? YES; Bacteria Urine None Seen /hpf; RBC Urine 0-2 /hpf (0-2); Squamous Epithelial Cell Urine 0-5 /hpf (0-5); WBC Urine 0-5 /hpf (0-5)
[2024-05-26 10:31] LABS: Urine Color Orange (Yellow)
[2024-05-26 10:32] LABS: Basophils % 0.5 %; Eosinophils # 0.1 10^3/uL (0.0-0.8); Eosinophils % 2.3 %; Hematocrit 44.9 % (36-47); Lymphocytes % 34.6 %; Mean Corpuscular HGB Conc 33.9 g/dL (30-55); Mean Corpuscular Hemoglobin 29.2 pg (27-33); Mean Corpuscular Volume 86.3 fl (85-98); Monocytes # 0.8 10^3/uL (0.2-0.9); Monocytes % 13.7 %; Neutrophils # 2.77 10^3/uL (1.8-7.7); Neutrophils % 48.5 %; Nucleated Red Blood Cells % 0 %; Platelet Count 259 10^3/cmm (157-399); Red Cell Distribution Width 12.5 % (12.1-15.1)
[2024-05-26 10:32] LABS: Add Urine Culture? No
[2024-05-26] MEDS: iohexol 350 mg/mL 500 mL Btl (per mL) IV (10:34)
[2024-05-26 10:49] LABS: Alanine Aminotransferase 19 U/L (0-33); Albumin Level 4.3 g/dL (3.5-5.2); Alkaline Phosphatase 73 U/L (35-105); Anion Gap 15.1 (5-19); Aspartate Amino Transferase 22 U/L (0-32); Blood Urea Nitrogen 14 mg/dL (6-20); Carbon Dioxide 24 mmol/L (22-29); Chloride 102 mmol/L (98-107); Creatinine Clr Calc Pharmacy 107.7684; Globulin 3.1 g/dL (1.3-4.6); Glucose 92 mg/dL (65-115); Osmolality Calculated 284 mOsm/kg (285-295); Potassium 4.1 mmol/L (3.5-5.1); Sodium 137 mmol/L (136-145); Total Bilirubin 0.5 mg/dL (0.15-1.2); Total Protein 7.4 g/dL (6.6-8.7)
[2024-05-26] MEDS: orphenadrine 30 mg/mL Inj 2 mL 60 MG IVP (11:05)
[2024-05-26] MEDS: dexamethasone 4 mg/mL INJ 8 MG IVP (11:05)
[2024-05-26] MEDS: dexamethasone 4 mg/mL INJ IVP (11:05)
[2024-05-26] MEDS: ketorolac 30 mg/mL INJ IVP (11:23)
[2024-05-26 12:04] VITALS: BP 129/96; PULSE 74; O2SAT 98
== END 2024-05-26 12:05 | disposition home or self-care (01) ==
PROVIDERS: Emergency Provider Physician Assistant; PCP Radiology Neuroradiology
DX: M54.50 Low back pain, unspecified (principal)
CPT/HCPCS: 36415; 74177; 80053; 81001; 85025; 96374; 96375; 99285; J1100; J1885; J2270; J2360; J2405